=== PATIENT | female | born 1950 ===

== ENCOUNTER 2019-10-23 01:10 | Inpatient (IN) | payer MEDICARE ==
[~2019-10-23] VITALS: Ht 160 cm; Wt 53.3 kg
[~2019-10-23 01:10] MED LIST: ACETAMINOPHEN 325 MG TABLET PO PRN; BISACODYL 10 MG SUPP PR PRN; DOCUSATE 100 MG CAPSULE PO PRN; ONDANSETRON ODT 4 MG PO PRN; POLYETHYLENE GLYCOL 17 GM PACKET PO PRN
[2019-10-23] MEDS ORDERED: BISACODYL 10 MG SUPP PR PRN (10:00)
[2019-10-23] MEDS ORDERED: ONDANSETRON ODT 4 MG PO PRN (10:00)
[2019-10-23] MEDS ORDERED: QUETIAPINE 25MG TABLET PO PRN (10:00)
[2019-10-23] MEDS ORDERED: POLYETHYLENE GLYCOL 17 GM PACKET PO PRN (10:00)
[2019-10-23] MEDS ORDERED: DOCUSATE 100 MG CAPSULE PO PRN (10:00)
[2019-10-23 10:26] VITALS: BP 145/77
[2019-10-23] MEDS ORDERED: PLEASE ENTER HEIGHT AND WEIGHT MC SCH ×2 (10:30→11:00)
[2019-10-23] MEDS ORDERED: PLEASE ENTER WEIGHT MC SCH (11:00)
[2019-10-23] MEDS ORDERED: GLIPizide ER 5 MG TABLET PO SCH (11:30)
[2019-10-23] MEDS ORDERED: LISI40TA PO (11:31)
[2019-10-23] MEDS ORDERED: METF500T17 PO (11:33)
[2019-10-23] MEDS ORDERED: HYDR50TA99 PO (11:34)
[2019-10-23] MEDS ORDERED: FENO150C2 PO (11:35)
[2019-10-23] MEDS ORDERED: LORA10TA75 PO (11:37)
[2019-10-23] MEDS ORDERED: GLIP-33 PO (11:37)
[2019-10-23] MEDS: FENOFIBRATE 145 MG TABLET PO SCH (12:27)
[2019-10-23] MEDS: LISINOPRIL 40 MG TABLET PO SCH (12:27)
[2019-10-23] MEDS: LORATADINE 10 MG TABLET PO SCH (12:27)
[2019-10-23] MEDS: QUETIAPINE 25MG TABLET PO SCH ×2 (12:28→20:42)
[2019-10-23] MEDS: DIVALPROEX 250 MG TAB.ER.24H PO SCH ×2 (12:35→20:42)
[2019-10-23] MEDS ORDERED: DEXTROSE 4 GM TAB.CHEW PO PRN (13:00)
[2019-10-23] MEDS ORDERED: DEXTROSE 50%, 50ML SYRINGE IVPush PRN (13:00)
[2019-10-23] MEDS ORDERED: GLUCAGON 1 MG IM PRN (13:00)
[2019-10-23] MEDS: metFORMIN 500 MG TABLET PO SCH (17:36)
[2019-10-23] MEDS: INSULIN LISPRO 100 UNITS/ML, PEN SQ-INSULIN SCH ×2 (17:36→20:47)
[2019-10-23 19:51] VITALS: BP 125/74
[2019-10-23] MEDS ORDERED: SODIUM CHLORIDE FLUSH 10ML SYR IVF SCH (21:00)
[2019-10-24 05:21] LABS: BASOPHILS # (AUTO) 0.03 x10^3/uL (0-0.1); BASOPHILS % (AUTO) 1 % (0-1); EOSINOPHILS # (AUTO) 0.18 x10^3/uL (0-0.4); EOSINOPHILS % (AUTO) 4 % (1-7); LYMPHOCYTES % (AUTO) 26 % (22-44); MD NO; MEAN CORPUSCULAR HEMOGLOBIN 26.6 pg (27.0-34.8); MEAN CORPUSCULAR HGB CONC 32.4 g/dL (32.4-35.8); MEAN PLATELET VOLUME 7.8 fL (7.4-10.4); MONOCYTES % (AUTO) 9 % (2-9); NEUTROPHILS # (AUTO) 2.89 x10^3/uL (1.8-6.8); NEUTROPHILS % (AUTO) 62 % (42-75); PLATELET COUNT 411 x10^3/uL (130-400); RED BLOOD COUNT 4.28 x10^6/uL (3.82-5.3); RED CELL DISTRIBUTION WIDTH 15.6 % (9.6-15.2)
[2019-10-24 05:31] LABS: ANION GAP 7 mmol/L (5-15); CHLORIDE 108 mmol/L (98-107)
[2019-10-24 05:59] LABS: CHOL/HDL RATIO 3.6; CHOLESTEROL, TOTAL 166 mg/dL (140-239); CREATININE 0.87 mg/dL (0.55-1.02); FREE T4 (FREE THYROXINE) 0.98 ng/dL (0.76-1.46); HDL CHOL % 28 % (28-40); HDL CHOLESTEROL (DIRECT) 46 mg/dL (40-60); LDL CHOLESTEROL,CALCULATED 99 mg/dL (54-169); LDL/HDL RATIO 2.2 (0.5-3.0); TRIGLYCERIDES 103 mg/dL (50-200); VLDL CHOLESTEROL 21 mg/dL (0-25)
[2019-10-24 08:04] VITALS: BP 151/81
[2019-10-24] MEDS: LORATADINE 10 MG TABLET PO SCH (08:12)
[2019-10-24] MEDS: FENOFIBRATE 145 MG TABLET PO SCH (08:12)
[2019-10-24] MEDS: LISINOPRIL 40 MG TABLET PO SCH (08:12)
[2019-10-24] MEDS: QUETIAPINE 25MG TABLET PO SCH ×2 (08:13→20:00)
[2019-10-24] MEDS: CHOLECALCIFEROL 1,000 UNIT TABLET PO SCH (08:17)
[2019-10-24] MEDS: INSULIN LISPRO 100 UNITS/ML, PEN SQ-INSULIN SCH ×4 (09:04→20:32)
[2019-10-24] MEDS: DIVALPROEX 250 MG TAB.ER.24H PO SCH ×2 (09:49→20:00)
[2019-10-24] MEDS: metFORMIN 500 MG TABLET PO SCH (17:15)
[2019-10-24 19:50] VITALS: BP 143/89
[2019-10-25] MEDS: INSULIN LISPRO 100 UNITS/ML, PEN SQ-INSULIN SCH ×4 (07:00→20:32)
[2019-10-25 07:34] VITALS: BP 128/76
[2019-10-25] MEDS: FENOFIBRATE 145 MG TABLET PO SCH (08:02)
[2019-10-25] MEDS: CHOLECALCIFEROL 1,000 UNIT TABLET PO SCH (08:03)
[2019-10-25] MEDS: QUETIAPINE 25MG TABLET PO SCH ×2 (08:03→20:29)
[2019-10-25] MEDS: LORATADINE 10 MG TABLET PO SCH (08:04)
[2019-10-25] MEDS: LISINOPRIL 40 MG TABLET PO SCH (08:04)
[2019-10-25] MEDS: DIVALPROEX 250 MG TAB.ER.24H PO SCH ×2 (08:04→20:29)
[2019-10-25] MEDS: CYANOCOBALOMIN 100MCG TABLET PO SCH (08:05)
[2019-10-25] MEDS: metFORMIN 500 MG TABLET PO SCH (16:53)
[2019-10-25 20:04] VITALS: BP 131/76
[2019-10-26 07:54] VITALS: BP 116/67
[2019-10-26] MEDS: INSULIN LISPRO 100 UNITS/ML, PEN SQ-INSULIN SCH ×4 (08:07→20:47)
[2019-10-26] MEDS: CYANOCOBALOMIN 100MCG TABLET PO SCH (10:16)
[2019-10-26] MEDS: FENOFIBRATE 145 MG TABLET PO SCH (10:16)
[2019-10-26] MEDS: DIVALPROEX 250 MG TAB.ER.24H PO SCH ×2 (10:17→20:39)
[2019-10-26] MEDS: LISINOPRIL 40 MG TABLET PO SCH (10:17)
[2019-10-26] MEDS: LORATADINE 10 MG TABLET PO SCH (10:17)
[2019-10-26] MEDS: QUETIAPINE 25MG TABLET PO SCH ×2 (10:18→20:39)
[2019-10-26] MEDS: CHOLECALCIFEROL 1,000 UNIT TABLET PO SCH (10:18)
[2019-10-26] MEDS: metFORMIN 500 MG TABLET PO SCH (17:09)
[2019-10-26 19:35] VITALS: BP 133/82
[2019-10-27 07:43] VITALS: BP 122/75
[2019-10-27] MEDS: INSULIN LISPRO 100 UNITS/ML, PEN SQ-INSULIN SCH ×4 (08:25→20:40)
[2019-10-27] MEDS: LORATADINE 10 MG TABLET PO SCH (08:27)
[2019-10-27] MEDS: DIVALPROEX 250 MG TAB.ER.24H PO SCH ×2 (08:27→20:36)
[2019-10-27] MEDS: LISINOPRIL 40 MG TABLET PO SCH (08:27)
[2019-10-27] MEDS: CYANOCOBALOMIN 100MCG TABLET PO SCH (08:27)
[2019-10-27] MEDS: FENOFIBRATE 145 MG TABLET PO SCH (08:27)
[2019-10-27] MEDS: CHOLECALCIFEROL 1,000 UNIT TABLET PO SCH (08:27)
[2019-10-27] MEDS: QUETIAPINE 25MG TABLET PO SCH ×2 (08:29→20:37)
[2019-10-27] MEDS: metFORMIN 500 MG TABLET PO SCH (16:41)
[2019-10-27 19:35] VITALS: BP 124/80
[2019-10-28] MEDS: INSULIN LISPRO 100 UNITS/ML, PEN SQ-INSULIN SCH ×4 (07:37→22:33)
[2019-10-28 07:40] VITALS: BP 133/78
[2019-10-28] MEDS: CYANOCOBALOMIN 100MCG TABLET PO SCH (08:25)
[2019-10-28] MEDS: LORATADINE 10 MG TABLET PO SCH (08:25)
[2019-10-28] MEDS: CHOLECALCIFEROL 1,000 UNIT TABLET PO SCH (08:25)
[2019-10-28] MEDS: FENOFIBRATE 145 MG TABLET PO SCH (08:25)
[2019-10-28] MEDS: DIVALPROEX 250 MG TAB.ER.24H PO SCH ×2 (08:25→20:10)
[2019-10-28] MEDS: QUETIAPINE 25MG TABLET PO SCH ×2 (08:25→20:10)
[2019-10-28] MEDS: LISINOPRIL 40 MG TABLET PO SCH (08:25)
[2019-10-28] MEDS: metFORMIN 500 MG TABLET PO SCH (18:10)
[2019-10-28 19:38] VITALS: BP 114/73
[2019-10-29 07:30] VITALS: BP 118/74
[2019-10-29] MEDS: INSULIN LISPRO 100 UNITS/ML, PEN SQ-INSULIN SCH ×4 (08:30→20:28)
[2019-10-29] MEDS: LISINOPRIL 40 MG TABLET PO SCH (08:37)
[2019-10-29] MEDS: DIVALPROEX 250 MG TAB.ER.24H PO SCH ×2 (08:37→20:27)
[2019-10-29] MEDS: LORATADINE 10 MG TABLET PO SCH (08:37)
[2019-10-29] MEDS: FENOFIBRATE 145 MG TABLET PO SCH (08:38)
[2019-10-29] MEDS: CYANOCOBALOMIN 100MCG TABLET PO SCH (08:38)
[2019-10-29] MEDS: CHOLECALCIFEROL 1,000 UNIT TABLET PO SCH (08:38)
[2019-10-29] MEDS: QUETIAPINE 25MG TABLET PO SCH ×2 (09:00→20:27)
[2019-10-29 19:22] VITALS: BP 126/80
[2019-10-29] MEDS: metFORMIN 500 MG TABLET PO SCH (19:36)
[2019-10-30 07:30] VITALS: BP 146/80
[2019-10-30] MEDS: CHOLECALCIFEROL 1,000 UNIT TABLET PO SCH (08:58)
[2019-10-30] MEDS: DIVALPROEX 250 MG TAB.ER.24H PO SCH ×2 (08:58→20:11)
[2019-10-30] MEDS: LISINOPRIL 40 MG TABLET PO SCH (08:58)
[2019-10-30] MEDS: QUETIAPINE 25MG TABLET PO SCH ×2 (08:59→20:11)
[2019-10-30] MEDS: CYANOCOBALOMIN 100MCG TABLET PO SCH (08:59)
[2019-10-30] MEDS: FENOFIBRATE 145 MG TABLET PO SCH (09:00)
[2019-10-30] MEDS: INSULIN LISPRO 100 UNITS/ML, PEN SQ-INSULIN SCH ×4 (09:08→20:11)
[2019-10-30] MEDS: LORATADINE 10 MG TABLET PO SCH (09:10)
[2019-10-30] MEDS: metFORMIN 500 MG TABLET PO SCH (17:56)
[2019-10-30 19:48] VITALS: BP 109/70
[2019-10-31] MEDS: INSULIN LISPRO 100 UNITS/ML, PEN SQ-INSULIN SCH ×4 (06:23→20:34)
[2019-10-31 07:15] VITALS: BP 130/77
[2019-10-31] MEDS: DIVALPROEX 250 MG TAB.ER.24H PO SCH ×2 (08:09→20:34)
[2019-10-31] MEDS: FENOFIBRATE 145 MG TABLET PO SCH (08:09)
[2019-10-31] MEDS: LISINOPRIL 40 MG TABLET PO SCH (08:09)
[2019-10-31] MEDS: CHOLECALCIFEROL 1,000 UNIT TABLET PO SCH (08:10)
[2019-10-31] MEDS: QUETIAPINE 25MG TABLET PO SCH ×2 (08:10→20:34)
[2019-10-31] MEDS: CYANOCOBALOMIN 100MCG TABLET PO SCH (08:10)
[2019-10-31] MEDS: LORATADINE 10 MG TABLET PO SCH (12:16)
[2019-10-31] MEDS: metFORMIN 500 MG TABLET PO SCH (17:08)
[2019-10-31 19:15] VITALS: BP 106/68
[2019-11-01 07:40] VITALS: BP 125/57
[2019-11-01] MEDS: INSULIN LISPRO 100 UNITS/ML, PEN SQ-INSULIN SCH ×4 (07:56→20:11)
[2019-11-01] MEDS: LORATADINE 10 MG TABLET PO SCH (08:29)
[2019-11-01] MEDS: CYANOCOBALOMIN 100MCG TABLET PO SCH (08:29)
[2019-11-01] MEDS: FENOFIBRATE 145 MG TABLET PO SCH (08:29)
[2019-11-01] MEDS: QUETIAPINE 25MG TABLET PO SCH ×2 (08:29→20:10)
[2019-11-01] MEDS: CHOLECALCIFEROL 1,000 UNIT TABLET PO SCH (08:29)
[2019-11-01] MEDS: LISINOPRIL 40 MG TABLET PO SCH (08:29)
[2019-11-01] MEDS: DIVALPROEX 250 MG TAB.ER.24H PO SCH ×2 (08:29→20:10)
[2019-11-01] MEDS: metFORMIN 500 MG TABLET PO SCH (17:07)
[2019-11-01] MEDS ORDERED: DIVALPROEX 250 MG TAB.ER.24H PO SCH (18:00)
[2019-11-01 20:07] VITALS: BP 120/75
[2019-11-02 07:20] VITALS: BP 126/77
[2019-11-02] MEDS: INSULIN LISPRO 100 UNITS/ML, PEN SQ-INSULIN SCH ×4 (07:45→20:54)
[2019-11-02] MEDS: FENOFIBRATE 145 MG TABLET PO SCH (08:04)
[2019-11-02] MEDS: CYANOCOBALOMIN 100MCG TABLET PO SCH (08:04)
[2019-11-02] MEDS: LORATADINE 10 MG TABLET PO SCH (08:04)
[2019-11-02] MEDS: LISINOPRIL 40 MG TABLET PO SCH (08:04)
[2019-11-02] MEDS: CHOLECALCIFEROL 1,000 UNIT TABLET PO SCH (08:05)
[2019-11-02] MEDS: ACETAMINOPHEN 325 MG TABLET PO PRN ×2 (08:23→13:15)
[2019-11-02] MEDS: metFORMIN 500 MG TABLET PO SCH (16:22)
[2019-11-02 17:01] LABS: MICROSCOPIC AUTO
[2019-11-02 19:09] VITALS: BP 110/71
[2019-11-02] MEDS: DIVALPROEX 250 MG TAB.ER.24H PO SCH (20:52)
[2019-11-02] MEDS: QUETIAPINE 25MG TABLET PO SCH (20:52)
[2019-11-03] MEDS: INSULIN LISPRO 100 UNITS/ML, PEN SQ-INSULIN SCH ×4 (07:30→21:04)
[2019-11-03 07:34] VITALS: BP 119/76
[2019-11-03] MEDS: LISINOPRIL 40 MG TABLET PO SCH (08:21)
[2019-11-03] MEDS: CYANOCOBALOMIN 100MCG TABLET PO SCH (08:21)
[2019-11-03] MEDS: LORATADINE 10 MG TABLET PO SCH (08:21)
[2019-11-03] MEDS: FENOFIBRATE 145 MG TABLET PO SCH (08:21)
[2019-11-03] MEDS: CHOLECALCIFEROL 1,000 UNIT TABLET PO SCH (08:21)
[2019-11-03] MEDS: ACETAMINOPHEN 325 MG TABLET PO PRN (08:28)
[2019-11-03] MEDS: metFORMIN 500 MG TABLET PO SCH (17:17)
[2019-11-03 19:55] VITALS: BP 127/74
[2019-11-03] MEDS: DIVALPROEX 250 MG TAB.ER.24H PO SCH (21:00)
[2019-11-03] MEDS: QUETIAPINE 25MG TABLET PO SCH (21:01)
[2019-11-04] MEDS: INSULIN LISPRO 100 UNITS/ML, PEN SQ-INSULIN SCH ×4 (07:38→20:03)
[2019-11-04 07:45] VITALS: BP 127/72
[2019-11-04] MEDS: LISINOPRIL 40 MG TABLET PO SCH (08:18)
[2019-11-04] MEDS: CYANOCOBALOMIN 100MCG TABLET PO SCH (08:18)
[2019-11-04] MEDS: LORATADINE 10 MG TABLET PO SCH (08:18)
[2019-11-04] MEDS: FENOFIBRATE 145 MG TABLET PO SCH (08:18)
[2019-11-04] MEDS: CHOLECALCIFEROL 1,000 UNIT TABLET PO SCH (08:18)
[2019-11-04] MEDS: metFORMIN 500 MG TABLET PO SCH (16:17)
[2019-11-04 19:27] VITALS: BP 109/69
[2019-11-04] MEDS: DIVALPROEX 250 MG TAB.ER.24H PO SCH (20:00)
[2019-11-04] MEDS: QUETIAPINE 25MG TABLET PO SCH (20:00)
[2019-11-05 07:45] VITALS: BP 135/80
[2019-11-05] MEDS: INSULIN LISPRO 100 UNITS/ML, PEN SQ-INSULIN SCH ×4 (08:50→19:45)
[2019-11-05] MEDS: CYANOCOBALOMIN 100MCG TABLET PO SCH (08:50)
[2019-11-05] MEDS: LISINOPRIL 40 MG TABLET PO SCH (08:51)
[2019-11-05] MEDS: FENOFIBRATE 145 MG TABLET PO SCH (08:51)
[2019-11-05] MEDS: LORATADINE 10 MG TABLET PO SCH (08:51)
[2019-11-05] MEDS: CHOLECALCIFEROL 1,000 UNIT TABLET PO SCH (08:51)
[2019-11-05] MEDS: metFORMIN 500 MG TABLET PO SCH (16:38)
[2019-11-05 19:20] VITALS: BP 118/74
[2019-11-05] MEDS: QUETIAPINE 25MG TABLET PO SCH (19:45)
[2019-11-05] MEDS: DIVALPROEX 250 MG TAB.ER.24H PO SCH (19:45)
[2019-11-06 07:36] VITALS: BP 92/58
[2019-11-06] MEDS: LISINOPRIL 40 MG TABLET PO SCH (08:14)
[2019-11-06] MEDS: FENOFIBRATE 145 MG TABLET PO SCH (08:22)
[2019-11-06] MEDS: LORATADINE 10 MG TABLET PO SCH (08:23)
[2019-11-06] MEDS: CHOLECALCIFEROL 1,000 UNIT TABLET PO SCH (08:23)
[2019-11-06] MEDS: CYANOCOBALOMIN 100MCG TABLET PO SCH (08:23)
[2019-11-06] MEDS: INSULIN LISPRO 100 UNITS/ML, PEN SQ-INSULIN SCH ×4 (08:26→21:07)
[2019-11-06] MEDS: metFORMIN 500 MG TABLET PO SCH (18:06)
[2019-11-06 19:47] VITALS: BP 93/53
[2019-11-06] MEDS: DIVALPROEX 250 MG TAB.ER.24H PO SCH (20:28)
[2019-11-06] MEDS: QUETIAPINE 25MG TABLET PO SCH (20:29)
[2019-11-07 07:51] VITALS: BP 118/71
[2019-11-07] MEDS: INSULIN LISPRO 100 UNITS/ML, PEN SQ-INSULIN SCH ×4 (08:06→20:14)
[2019-11-07] MEDS: LISINOPRIL 40 MG TABLET PO SCH (09:21)
[2019-11-07] MEDS: FENOFIBRATE 145 MG TABLET PO SCH (09:21)
[2019-11-07] MEDS: CHOLECALCIFEROL 1,000 UNIT TABLET PO SCH (09:21)
[2019-11-07] MEDS: LORATADINE 10 MG TABLET PO SCH (09:21)
[2019-11-07] MEDS: CYANOCOBALOMIN 100MCG TABLET PO SCH (09:21)
[2019-11-07] MEDS: metFORMIN 500 MG TABLET PO SCH (17:13)
[2019-11-07 19:16] VITALS: BP 106/70
[2019-11-07] MEDS: QUETIAPINE 25MG TABLET PO SCH (20:13)
[2019-11-07] MEDS: DIVALPROEX 250 MG TAB.ER.24H PO SCH (20:13)
[2019-11-08 07:30] VITALS: BP 117/73
[2019-11-08] MEDS: INSULIN LISPRO 100 UNITS/ML, PEN SQ-INSULIN SCH ×4 (07:48→21:21)
[2019-11-08] MEDS: CHOLECALCIFEROL 1,000 UNIT TABLET PO SCH (09:00)
[2019-11-08] MEDS: CYANOCOBALOMIN 100MCG TABLET PO SCH (09:11)
[2019-11-08] MEDS: LISINOPRIL 40 MG TABLET PO SCH (09:11)
[2019-11-08] MEDS: FENOFIBRATE 145 MG TABLET PO SCH (09:11)
[2019-11-08] MEDS: LORATADINE 10 MG TABLET PO SCH (09:11)
[2019-11-08] MEDS: metFORMIN 500 MG TABLET PO SCH (16:42)
[2019-11-08 20:00] VITALS: BP 108/68
[2019-11-08] MEDS: DIVALPROEX 250 MG TAB.ER.24H PO SCH (21:21)
[2019-11-08] MEDS: QUETIAPINE 25MG TABLET PO SCH (21:21)
[2019-11-09 07:40] VITALS: BP 134/76
[2019-11-09] MEDS: LISINOPRIL 40 MG TABLET PO SCH (08:13)
[2019-11-09] MEDS: FENOFIBRATE 145 MG TABLET PO SCH (08:13)
[2019-11-09] MEDS: LORATADINE 10 MG TABLET PO SCH (08:13)
[2019-11-09] MEDS: CHOLECALCIFEROL 1,000 UNIT TABLET PO SCH (08:13)
[2019-11-09] MEDS: CYANOCOBALOMIN 100MCG TABLET PO SCH (08:13)
[2019-11-09] MEDS: INSULIN LISPRO 100 UNITS/ML, PEN SQ-INSULIN SCH ×4 (08:14→20:06)
[2019-11-09] MEDS: metFORMIN 500 MG TABLET PO SCH (16:50)
[2019-11-09 19:27] VITALS: BP 116/73
[2019-11-09] MEDS: QUETIAPINE 25MG TABLET PO SCH (20:02)
[2019-11-09] MEDS: DIVALPROEX 250 MG TAB.ER.24H PO SCH (20:02)
[2019-11-10 07:30] VITALS: BP 113/72
[2019-11-10] MEDS: INSULIN LISPRO 100 UNITS/ML, PEN SQ-INSULIN SCH ×4 (07:40→19:59)
[2019-11-10] MEDS: LISINOPRIL 40 MG TABLET PO SCH (08:50)
[2019-11-10] MEDS: LORATADINE 10 MG TABLET PO SCH (08:50)
[2019-11-10] MEDS: FENOFIBRATE 145 MG TABLET PO SCH (08:51)
[2019-11-10] MEDS: CYANOCOBALOMIN 100MCG TABLET PO SCH (08:51)
[2019-11-10] MEDS: CHOLECALCIFEROL 1,000 UNIT TABLET PO SCH (08:52)
[2019-11-10 14:16] LABS: ALANINE AMINOTRANSFERASE 21 U/L (12-78); ALBUMIN 3.5 g/dL (3.4-5.0); ANION GAP 6 mmol/L (5-15); CALCIUM 10.1 mg/dL (8.5-10.1); CHLORIDE 101 mmol/L (98-107); CREATININE 1.08 mg/dL (0.55-1.02)
[2019-11-10 14:19] LABS: ALKALINE PHOSPHATASE 57 U/L (45-117); BILIRUBIN,TOTAL 0.3 mg/dL (0.2-1.0); TOTAL PROTEIN 7.9 g/dL (6.4-8.2)
[2019-11-10 19:52] VITALS: BP 109/68
[2019-11-10] MEDS: DIVALPROEX 250 MG TAB.ER.24H PO SCH (19:59)
[2019-11-10] MEDS: QUETIAPINE 25MG TABLET PO SCH (20:13)
[2019-11-11 07:54] VITALS: BP 133/77
[2019-11-11] MEDS: LISINOPRIL 40 MG TABLET PO SCH (08:33)
[2019-11-11] MEDS: CYANOCOBALOMIN 100MCG TABLET PO SCH (08:33)
[2019-11-11] MEDS: LORATADINE 10 MG TABLET PO SCH (08:33)
[2019-11-11] MEDS: FENOFIBRATE 145 MG TABLET PO SCH (08:33)
[2019-11-11] MEDS: INSULIN LISPRO 100 UNITS/ML, PEN SQ-INSULIN SCH ×4 (08:33→20:06)
[2019-11-11] MEDS: CHOLECALCIFEROL 1,000 UNIT TABLET PO SCH (08:33)
[2019-11-11 19:24] VITALS: BP 116/72
[2019-11-11] MEDS: QUETIAPINE 25MG TABLET PO SCH (20:46)
[2019-11-11] MEDS: DIVALPROEX 250 MG TAB.ER.24H PO SCH (20:46)
[2019-11-12 07:39] VITALS: BP 124/76
[2019-11-12] MEDS: INSULIN LISPRO 100 UNITS/ML, PEN SQ-INSULIN SCH ×4 (08:11→20:27)
[2019-11-12] MEDS: FENOFIBRATE 145 MG TABLET PO SCH (08:12)
[2019-11-12] MEDS: LORATADINE 10 MG TABLET PO SCH (08:12)
[2019-11-12] MEDS: LISINOPRIL 40 MG TABLET PO SCH (08:12)
[2019-11-12] MEDS: CHOLECALCIFEROL 1,000 UNIT TABLET PO SCH (08:35)
[2019-11-12] MEDS: CYANOCOBALOMIN 100MCG TABLET PO SCH (08:35)
[2019-11-12] MEDS: metFORMIN 500 MG TABLET PO SCH (16:50)
[2019-11-12 19:14] VITALS: BP 108/70
[2019-11-12] MEDS: QUETIAPINE 25MG TABLET PO SCH (20:29)
[2019-11-12] MEDS: DIVALPROEX 250 MG TAB.ER.24H PO SCH (20:29)
[2019-11-13 07:46] VITALS: BP 103/65
[2019-11-13] MEDS: INSULIN LISPRO 100 UNITS/ML, PEN SQ-INSULIN SCH ×4 (08:53→20:12)
[2019-11-13] MEDS: CYANOCOBALOMIN 100MCG TABLET PO SCH (08:55)
[2019-11-13] MEDS: LISINOPRIL 40 MG TABLET PO SCH (08:55)
[2019-11-13] MEDS: LORATADINE 10 MG TABLET PO SCH (08:55)
[2019-11-13] MEDS: FENOFIBRATE 145 MG TABLET PO SCH (08:55)
[2019-11-13] MEDS: CHOLECALCIFEROL 1,000 UNIT TABLET PO SCH (08:55)
[2019-11-13] MEDS: metFORMIN 500 MG TABLET PO SCH ×2 (08:57→17:26)
[2019-11-13 19:28] VITALS: BP 115/73
[2019-11-13] MEDS: DIVALPROEX 250 MG TAB.ER.24H PO SCH (20:39)
[2019-11-13] MEDS: QUETIAPINE 25MG TABLET PO SCH (20:39)
[2019-11-14 07:50] VITALS: BP 143/74
[2019-11-14] MEDS: INSULIN LISPRO 100 UNITS/ML, PEN SQ-INSULIN SCH ×4 (08:06→20:15)
[2019-11-14] MEDS: CYANOCOBALOMIN 100MCG TABLET PO SCH (08:08)
[2019-11-14] MEDS: metFORMIN 500 MG TABLET PO SCH ×2 (08:08→16:46)
[2019-11-14] MEDS: LORATADINE 10 MG TABLET PO SCH (08:08)
[2019-11-14] MEDS: LISINOPRIL 40 MG TABLET PO SCH (08:08)
[2019-11-14] MEDS: CHOLECALCIFEROL 1,000 UNIT TABLET PO SCH (08:08)
[2019-11-14] MEDS: FENOFIBRATE 145 MG TABLET PO SCH (08:08)
[2019-11-14 20:05] VITALS: BP 103/65
[2019-11-14] MEDS: DIVALPROEX 250 MG TAB.ER.24H PO SCH (20:13)
[2019-11-14] MEDS: QUETIAPINE 25MG TABLET PO SCH (20:14)
[2019-11-15 07:00] VITALS: BP 119/74
[2019-11-15] MEDS: INSULIN LISPRO 100 UNITS/ML, PEN SQ-INSULIN SCH ×4 (07:00→20:13)
[2019-11-15] MEDS: FENOFIBRATE 145 MG TABLET PO SCH (08:09)
[2019-11-15] MEDS: LISINOPRIL 40 MG TABLET PO SCH (08:09)
[2019-11-15] MEDS: CHOLECALCIFEROL 1,000 UNIT TABLET PO SCH (08:09)
[2019-11-15] MEDS: LORATADINE 10 MG TABLET PO SCH (08:09)
[2019-11-15] MEDS: CYANOCOBALOMIN 100MCG TABLET PO SCH (08:09)
[2019-11-15] MEDS: metFORMIN 500 MG TABLET PO SCH ×2 (08:09→16:17)
[2019-11-15 19:25] VITALS: BP 106/70
[2019-11-15] MEDS: DIVALPROEX 250 MG TAB.ER.24H PO SCH (20:12)
[2019-11-15] MEDS: QUETIAPINE 25MG TABLET PO SCH (20:12)
[2019-11-16] MEDS: INSULIN LISPRO 100 UNITS/ML, PEN SQ-INSULIN SCH ×4 (07:51→20:57)
[2019-11-16] MEDS: FENOFIBRATE 145 MG TABLET PO SCH (07:53)
[2019-11-16] MEDS: LORATADINE 10 MG TABLET PO SCH (07:53)
[2019-11-16] MEDS: CYANOCOBALOMIN 100MCG TABLET PO SCH (07:53)
[2019-11-16] MEDS: CHOLECALCIFEROL 1,000 UNIT TABLET PO SCH (07:54)
[2019-11-16] MEDS: metFORMIN 500 MG TABLET PO SCH ×2 (07:54→16:28)
[2019-11-16] MEDS: LISINOPRIL 40 MG TABLET PO SCH (07:54)
[2019-11-16 07:58] VITALS: BP 103/66
[2019-11-16 19:50] VITALS: BP 116/71
[2019-11-16] MEDS: DIVALPROEX 250 MG TAB.ER.24H PO SCH (20:52)
[2019-11-16] MEDS: QUETIAPINE 25MG TABLET PO SCH (20:52)
[2019-11-17 04:56] LABS: CREATININE 1.13 mg/dL (0.55-1.02)
[2019-11-17] MEDS: INSULIN LISPRO 100 UNITS/ML, PEN SQ-INSULIN SCH ×4 (07:24→20:39)
[2019-11-17 07:40] VITALS: BP 129/74
[2019-11-17] MEDS: LISINOPRIL 40 MG TABLET PO SCH (07:57)
[2019-11-17] MEDS: CYANOCOBALOMIN 100MCG TABLET PO SCH (07:58)
[2019-11-17] MEDS: FENOFIBRATE 145 MG TABLET PO SCH (07:58)
[2019-11-17] MEDS: CHOLECALCIFEROL 1,000 UNIT TABLET PO SCH (07:58)
[2019-11-17] MEDS: metFORMIN 500 MG TABLET PO SCH ×2 (07:58→16:10)
[2019-11-17] MEDS: LORATADINE 10 MG TABLET PO SCH (08:00)
[2019-11-17 19:18] VITALS: BP 128/78
[2019-11-17] MEDS: DIVALPROEX 250 MG TAB.ER.24H PO SCH (20:35)
[2019-11-17] MEDS: QUETIAPINE 25MG TABLET PO SCH (20:35)
[2019-11-18] MEDS: INSULIN LISPRO 100 UNITS/ML, PEN SQ-INSULIN SCH ×4 (07:00→20:35)
[2019-11-18 07:40] VITALS: BP 122/73
[2019-11-18] MEDS: FENOFIBRATE 145 MG TABLET PO SCH (08:06)
[2019-11-18] MEDS: CHOLECALCIFEROL 1,000 UNIT TABLET PO SCH (08:06)
[2019-11-18] MEDS: metFORMIN 500 MG TABLET PO SCH ×2 (08:06→17:23)
[2019-11-18] MEDS: LORATADINE 10 MG TABLET PO SCH (08:06)
[2019-11-18] MEDS: CYANOCOBALOMIN 100MCG TABLET PO SCH (08:06)
[2019-11-18] MEDS: LISINOPRIL 40 MG TABLET PO SCH (08:07)
[2019-11-18 19:10] VITALS: BP 129/77
[2019-11-18] MEDS: QUETIAPINE 25MG TABLET PO SCH (20:30)
[2019-11-18] MEDS: DIVALPROEX 250 MG TAB.ER.24H PO SCH (20:30)
[2019-11-19] MEDS: INSULIN LISPRO 100 UNITS/ML, PEN SQ-INSULIN SCH ×4 (07:00→20:16)
[2019-11-19 07:35] VITALS: BP 110/75
[2019-11-19] MEDS: metFORMIN 500 MG TABLET PO SCH ×2 (08:00→18:01)
[2019-11-19] MEDS: LORATADINE 10 MG TABLET PO SCH (08:41)
[2019-11-19] MEDS: CHOLECALCIFEROL 1,000 UNIT TABLET PO SCH (08:41)
[2019-11-19] MEDS: FENOFIBRATE 145 MG TABLET PO SCH (08:41)
[2019-11-19] MEDS: LISINOPRIL 40 MG TABLET PO SCH (08:42)
[2019-11-19] MEDS: CYANOCOBALOMIN 100MCG TABLET PO SCH (08:42)
[2019-11-19 19:46] VITALS: BP 107/68
[2019-11-19] MEDS: DIVALPROEX 250 MG TAB.ER.24H PO SCH (20:10)
[2019-11-19] MEDS: QUETIAPINE 25MG TABLET PO SCH (20:12)
[2019-11-20 07:39] VITALS: BP 121/73
[2019-11-20] MEDS: FENOFIBRATE 145 MG TABLET PO SCH (08:00)
[2019-11-20] MEDS: INSULIN LISPRO 100 UNITS/ML, PEN SQ-INSULIN SCH ×4 (08:00→21:00)
[2019-11-20] MEDS: metFORMIN 500 MG TABLET PO SCH ×2 (08:00→16:50)
[2019-11-20] MEDS: CYANOCOBALOMIN 100MCG TABLET PO SCH (08:01)
[2019-11-20] MEDS: LISINOPRIL 40 MG TABLET PO SCH (08:01)
[2019-11-20] MEDS: LORATADINE 10 MG TABLET PO SCH (08:01)
[2019-11-20] MEDS: CHOLECALCIFEROL 1,000 UNIT TABLET PO SCH (08:01)
[2019-11-20] MEDS ORDERED: LORA-247 PO (08:47)
[2019-11-20] MEDS ORDERED: FENO145T19 PO (08:47)
[2019-11-20] MEDS ORDERED: GLIP5TAB10 PO (08:47)
[2019-11-20] MEDS ORDERED: CHOL10003 PO (08:47)
[2019-11-20] MEDS ORDERED: CYAN100T22 PO (08:47)
[2019-11-20] MEDS ORDERED: METF500T PO (08:47)
[2019-11-20] MEDS ORDERED: LISI40TA PO (08:47)
[2019-11-20] MEDS ORDERED: DIVA250T PO (08:47)
[2019-11-20] MEDS ORDERED: QUET25TA7 PO (08:47)
[2019-11-20 20:08] VITALS: BP 102/66
[2019-11-20] MEDS: QUETIAPINE 25MG TABLET PO SCH (20:16)
[2019-11-20] MEDS: DIVALPROEX 250 MG TAB.ER.24H PO SCH (20:16)
[2019-11-21] MEDS: INSULIN LISPRO 100 UNITS/ML, PEN SQ-INSULIN SCH ×2 (06:15→11:00)
[2019-11-21 07:21] VITALS: BP 112/67
[2019-11-21] MEDS: LISINOPRIL 40 MG TABLET PO SCH (07:47)
[2019-11-21] MEDS: metFORMIN 500 MG TABLET PO SCH (07:47)
[2019-11-21] MEDS: LORATADINE 10 MG TABLET PO SCH (07:47)
[2019-11-21] MEDS: FENOFIBRATE 145 MG TABLET PO SCH (07:48)
[2019-11-21] MEDS: CYANOCOBALOMIN 100MCG TABLET PO SCH (07:48)
[2019-11-21] MEDS: CHOLECALCIFEROL 1,000 UNIT TABLET PO SCH (07:49)
== END 2019-11-21 12:55 | DRG 884 ==
LOC: 3E 10:17
PROVIDERS: ADMIT Psychiatry & Neurology Psychosomatic Medicine; ATTEND Psychiatry & Neurology Psychosomatic Medicine
DX: F03.91 Unspecified dementia, unspecified severity, with behavioral disturbance (principal); Z68.1 Body mass index [BMI] 19.9 or less, adult; E11.9 Type 2 diabetes mellitus without complications; E55.9 Vitamin D deficiency, unspecified; E78.5 Hyperlipidemia, unspecified; I10 Essential (primary) hypertension; R32 Unspecified urinary incontinence; G47.00 Insomnia, unspecified; Z66 Do not resuscitate; Z79.84 Long term (current) use of oral hypoglycemic drugs; Z79.899 Other long term (current) drug therapy; Z90.710 Acquired absence of both cervix and uterus; Z90.49 Acquired absence of other specified parts of digestive tract; Z88.2 Allergy status to sulfonamides; Z88.8 Allergy status to other drugs, medicaments and biological substances; Z82.49 Family history of ischemic heart disease and other diseases of the circulatory system; Z82.3 Family history of stroke; Z83.3 Family history of diabetes mellitus; Z83.6 Family history of other diseases of the respiratory system; Z91.83 Wandering in diseases classified elsewhere; Z20.828 Contact with and (suspected) exposure to other viral communicable diseases
CPT/HCPCS: 36415; 71045; 80048; 80053; 80061; 81001; 82140; 82565; 82607; 82962; 83036; 84439; 84443; 85025; 87635; 93005; 92523-GN; J1815